=== PATIENT | female | born 1935 | race Caucasian/White ===

== ENCOUNTER 2017-12-07 15:37 | Inpatient (IN) | payer OTHER ==
[~2017-12-07] VITALS: Ht 160 cm; Wt 107.5 kg
--- NOTE | ~2017-12-07 | 2DMMODE ---
[facility] [address] [place] [address] 2 D/M-MODE ECHOCARDIOGRAM Name: EMMETT DIAMOND Room #: 461-P [facility] IN .R.#: [id number] Admission: 12/07/17 Attend Phys: Ricci Chery MD Discharge: Date of : 39 Date of Service: 12/08/17 1017 Report #: [id number] THIS REPORT FOR: //name// APPROVED REPORT Study performed: 12/08/2017 08:22:12 EXAM: Comprehensive 2D, Doppler, and color-flow Echocardiogram Patient Location: Bedside Room #: 461 Status: routine BSA: 2.05 HR: 113 bpm BP: 128/61 mmHg Other Information Study Quality: Technically Difficult/Technically Limited Technically limited study due to body habitus, inability to position patient. Indications Congestive Heart Failure COPD Diabetes Atrial Fibrillation Dyspnea Hypertension/HDD 2D Dimensions RVDd: 29.75 mm LVEF(%): 66.34 (>50%) IVSd: 13.28 (7-11mm) LVOT Diam: 22.55 (18-24mm) LVDd: 41.64 mm PWd: 11.86 (7-11mm) LVDs: 26.55 (25-40mm) Aortic Root: 31.14 mm IVC: 20.00 mm Carreon's LVEF: 66.34 % Volumes Left Atrial Volume (Systole) Single Plane 4CH: 22.71 mL Single Plane 2CH: 48.56 mL LA ESV Index: 19.00 mL/m2 Aortic Valve AoV Peak Francois.: 1.88 m/s AO Peak Gr.: 14.21 mmHg LVOT Max P.34 mmHg [facility] [address] [place] [address] 2 D/M-MODE ECHOCARDIOGRAM Name: EMMETT DIAMOND Room #: 461-[facility].#: [id number] Admission: 12/07/17 Attend Phys: Ricci Chery MD Discharge: Date of : 39 Date of Service: 12/08/17 1017 Report #: [id number] LVOT Max V: 0.91 m/s ZACHARY Vmax: 1.94 cm2 Mitral Valve MV Decel. Time: 127.56 ms MV E Max Francois.: 1.56 m/s Pulmonary Valve PV Peak Francois.: 1.29 m/s PV Peak Gr.: 6.88 mmHg Tricuspid Valve TR Peak Francois.: 2.95 m/s RAP Estimate: 5.00 mmHg TR Peak Gr.: 34.77 mmHg PA Pressure: 40.00 mmHg Left Ventricle The left ventricle is normal size. Mild concentric left ventricular hypertrophy. The left ventricular systolic function is normal. The left ventricular ejection fraction is within the normal range. LVEF is 55-60%. This study is not technically sufficient to allow evaluation of the LV diastolic function due to atrial fibrillation. Right Ventricle The right ventricle is normal size. The right ventricular systolic function is normal. Atria The left atrium size is normal. The right atrium size is normal. Aortic Valve The aortic valve is not well visualized. No aortic regurgitation is present. There is no aortic valvular stenosis. Mitral Valve The mitral valve is normal in structure. Trace to mild mitral regurgitation. No evidence of mitral valve stenosis. Tricuspid Valve The tricuspid valve is normal in structure. Trace to mild tricuspid regurgitation. PAP is estimated at 40 mmHg. Pulmonic Valve Pulmonic valve is not well visualized. [facility] [address] [place] [address] 2 D/M-MODE ECHOCARDIOGRAM Name: EMMETT DIAMOND Room #: 461-P [facility] IN .R.#: [id number] Admission: 12/07/17 Attend Phys: Ricci Chery MD Discharge: Date of : 39 Date of Service: 12/08/17 1017 Report #: [id number] Great Vessels The aortic root is normal in size. IVC is normal in size and collapses >50% with inspiration. Pericardium There is no pericardial effusion. <Conclusion> The left ventricle is normal size. LVEF is 55-60%. This study is not technically sufficient to allow evaluation of the LV diastolic function due to atrial fibrillation. The right ventricle is normal size. The aortic valve is not well visualized. There is no aortic valvular stenosis. Trace to mild mitral regurgitation. Trace to mild tricuspid regurgitation. PAP is estimated at 40 mmHg. The aortic root is normal in size. There is no pericardial effusion. <ELECTRONICALLY SIGNED> By: Jonathan Carrington MD, FACC 12/08/17 1017 1017 1017 Jonathan Carrington MD, FACC /INF
--- NOTE | ~2017-12-07 | EKG ---
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
[~2017-12-07 15:37] MED LIST: ACETAMINOPHEN650 MG RECTAL; ACIDOPHILUS PROB1 MG PO; ALBUTEROL2.5 MG/0.1 INH; AMARYL2 MG PO; ANTIVERT25 MG PO; ARIMIDEX PO; ATIVAN0.5 MG PO; CATHFLO ACT2 MG/VIAL INJECTION; CENTRUM SILVER1 EAC4 PO; COUMADIN7.5 MG PO; CRANBERRY425 MG PO; CYCLOBENZAPRINE5 MG PO; DAKIN'S473 M1; DIFLUCAN200 MG IV; DUONEB 2.5-0.5 M3 ML; DUONEB 2.5-0.5 M3 ML INH; ENOXAPARIN40 MG/0.1 SUBQ; ENOXAPARIN80 MG/0.1 SUBQ; FLONASE 0.05%50 MCG NASAL; GABAPENTIN 100100 MG PO; GLUCAGEN1 MG SUBQ; GLUCOPHAGE500 MG PO; GLUCOSE GEL38 GM; HEPARIN 1,100 UNIT/1 SUBQ; HYDROCODONE-AP1 EAC6 PO; INTRALIPID; IPRAT-ALBUT 0.5-3 ML IH; LASIX 40 MG TAB40 M2 PO; LEVAQUIN 500 M500 M9; LEVEMIR SUBQ; LEVEMIR100 UNIT/1 SUBQ; LEVOTHYROXIN0.075 MG PO; LEVOTHYROXINE 0.1 MG PO; MAGNESIUM OXID400 MG PO; MAGOX 400400 MG PO; MAPAP325 MG PO; MOM; MORPHINE 44 MG/1 ML IV PUSH; MUCINEX TA600 MG/TA2 PO; NORCO 10-325 T1 EACH PO; NOVOLOG100 UNIT/1 SUBQ; NYAMYC15 GM TOP; NYSTATIN CREAM TOP; ONDANSETRON HCL4 M2; ONDANSETRON HCL4 M2 PO; ONDANSETRON4 MG/2 ML IJ; PANTOPRAZOLE SO40 M1; PAXIL10 MG; POTASSIUM20 PO; PROAIR HFA8.5 GM INH; PROTONIX 440 MG/VIA1 IV; PROTONIX40 M1 PO; PULMICORT0.5 MG/22; PULMICORT0.5 MG/22 INH; REGLAN 10 MG TA10 MG IV; REMERON15 MG PO; REQUIP 0.25 M0.25 MG PO; REQUIP0.5 MG PO; ROCEPHIN 11 GM/1001 IVPB; TPN ELECTROLYTE20 M1 IV; TPN ELECTROLYTE20 ML IV; TUMS PO; VANCOMYCIN HCL 11 G2 IVPB; VOLTAREN GEL 1100 G1; ZOLOFT50 MG PO; ZYRTEC10 MG; [UNRECOGNIZED DRUG - OTHER] IM
[2017-12-07 15:38] VITALS: BP 125/60
[2017-12-07 15:54] LABS: ABSOLUTE NEUTROPHILS 5.4 thou/uL (1.4-8.2); BASOPHILS 0.8 % (0.0-2.0); EOSINOPHILS 0.9 % (0.0-3.0); HEMATOCRIT 40.6 % (37.0-47.0); HEMOGLOBIN 13.3 gm/dL (12.0-15.0); LYMPHOCYTES 20.1 % (24.0-44.0); MCH 27.7 pg (26.0-34.0); MCHC 32.7 g/dL (28.0-37.0); MCV 84.8 fL (80.0-100.0); MONOCYTES 7.8 % (1.0-8.0); PLATELET COUNT 155 thou/uL (150-400); POLYS 70.4 % (36.0-66.0); RBC 4.79 mil/uL (4.20-5.00); RDW 18.8 % (10.5-14.5); WBC 7.7 thou/uL (4.0-11.0)
[2017-12-07 16:07] LABS: ANION GAP 8 mmol/L (7-16); BUN 24 mg/dL (7-18); CALCIUM 9.4 mg/dL (8.5-10.1); CHLORIDE 99 mmol/L (98-107); CO2 32 mmol/L (21-32); CREATININE 1.2 mg/dL (0.6-1.0); GLUCOSE 237 mg/dL (74-106); POTASSIUM 4.1 mmol/L (3.5-5.1); SODIUM 139 mmol/L (136-145)
[2017-12-07 16:10] LABS: TROPONIN-I < 0.04 ng/mL (<0.06)
[2017-12-07 20:57] VITALS: BP 158/87
[2017-12-07 21:23] VITALS: BP 162/87
[2017-12-07 23:42] VITALS: BP 176/92
[2017-12-08] MEDS ORDERED: ANASTROZOLE1 MG PO (04:10)
[2017-12-08 04:11] VITALS: BP 128/61
[2017-12-08] MEDS ORDERED: XARELTO20 MG PO ×2 (04:17→04:18)
[2017-12-08 08:00] VITALS: BP 154/76
[2017-12-08 16:00] VITALS: BP 131/59
[2017-12-08 20:06] VITALS: BP 147/80
[2017-12-09 01:09] LABS: GLYCOHEMOGLOBIN (HGB A1C) 9.8 % (4.8-5.6)
[2017-12-09 02:59] VITALS: BP 174/79
[2017-12-09 06:35] LABS: ABSOLUTE NEUTROPHILS 9.1 thou/uL (1.4-8.2); BASOPHILS 0.2 % (0.0-2.0); HEMATOCRIT 40.8 % (37.0-47.0); LYMPHOCYTES 5.7 % (24.0-44.0); MCH 27.1 pg (26.0-34.0); MCHC 31.8 g/dL (28.0-37.0); MCV 85.3 fL (80.0-100.0); MONOCYTES 1.9 % (1.0-8.0); PLATELET COUNT 161 thou/uL (150-400); POLYS 92.2 % (36.0-66.0); RBC 4.78 mil/uL (4.20-5.00); RDW 18.8 % (10.5-14.5); WBC 9.8 thou/uL (4.0-11.0)
[2017-12-09 06:52] LABS: ALBUMIN 3.3 g/dL (3.4-5.0); CALCIUM 8.9 mg/dL (8.5-10.1); CREATININE 1.1 mg/dL (0.6-1.0); MAGNESIUM 2.6 mg/dL (1.8-2.4); TOTAL BILIRUBIN 0.8 mg/dL (<0.1-1.0)
[2017-12-09 08:00] VITALS: BP 127/64
[2017-12-09 15:51] VITALS: BP 130/62
[2017-12-09 20:05] VITALS: BP 131/65
[2017-12-10 03:49] VITALS: BP 140/61
[2017-12-10 05:22] LABS: HEMATOCRIT 38.4 % (37.0-47.0); HEMOGLOBIN 12.1 gm/dL (12.0-15.0); MCH 27.2 pg (26.0-34.0); MCHC 31.5 g/dL (28.0-37.0); MCV 86.5 fL (80.0-100.0); RBC 4.44 mil/uL (4.20-5.00); WBC 7.5 thou/uL (4.0-11.0)
[2017-12-10 05:37] LABS: CALCIUM 8.9 mg/dL (8.5-10.1); CREATININE 1.2 mg/dL (0.6-1.0); POTASSIUM 4.2 mmol/L (3.5-5.1)
[2017-12-10 08:41] VITALS: BP 149/70
[2017-12-10 16:07] VITALS: BP 143/64
[2017-12-10 19:59] VITALS: BP 117/57
[2017-12-11 03:59] VITALS: BP 147/71
[2017-12-11 05:04] LABS: HEMATOCRIT 37.4 % (37.0-47.0); MCH 27.5 pg (26.0-34.0); MCHC 32.2 g/dL (28.0-37.0); MCV 85.6 fL (80.0-100.0); RBC 4.37 mil/uL (4.20-5.00); RDW 18.8 % (10.5-14.5); WBC 6.5 thou/uL (4.0-11.0)
[2017-12-11 05:16] LABS: CALCIUM 8.7 mg/dL (8.5-10.1)
[2017-12-11 05:23] LABS: POTASSIUM 5.3 mmol/L (3.5-5.1)
[2017-12-11 08:08] VITALS: BP 149/80
[2017-12-11 15:30] VITALS: BP 158/87
[2017-12-11 20:11] VITALS: BP 134/67
[2017-12-12 03:41] VITALS: BP 142/71
[2017-12-12 06:13] LABS: ALBUMIN 2.9 g/dL (3.4-5.0); CALCIUM 8.7 mg/dL (8.5-10.1); CREATININE 0.9 mg/dL (0.6-1.0); PHOSPHORUS 2.6 mg/dL (2.5-4.9); POTASSIUM 4.3 mmol/L (3.5-5.1); TOTAL BILIRUBIN 0.6 mg/dL (<0.1-1.0); TOTAL PROTEIN 6.2 g/dL (6.4-8.2)
[2017-12-12 08:20] VITALS: BP 140/73
[2017-12-12] MEDS ORDERED: AUGMENTIN 500-1 EACH PO (15:07)
[2017-12-12] MEDS ORDERED: MEDROL4 M1 PO (15:09)
[2017-12-12 15:16] VITALS: BP 138/72
[2017-12-12 19:06] VITALS: BP 153/87
[2017-12-13 03:33] VITALS: BP 165/77
[2017-12-13 07:27] VITALS: BP 150/62
== END 2017-12-13 14:00 | DRG 177 ==
LOC: ER 15:37 → EROBS 17:55 → 4W 17:55
PROVIDERS: Emergency Medicine; Hospitalist; Nurse Practitioner
DX: J15.6 Pneumonia due to other Gram-negative bacteria (principal); J96.21 Acute and chronic respiratory failure with hypoxia; N17.9 Acute kidney failure, unspecified; K57.80 Diverticulitis of intestine, part unspecified, with perforation and abscess without bleeding; J44.1 Chronic obstructive pulmonary disease with (acute) exacerbation; Z68.41 Body mass index [BMI] 40.0-44.9, adult; F32.9 Major depressive disorder, single episode, unspecified; G25.81 Restless legs syndrome; F41.9 Anxiety disorder, unspecified; G47.09 Other insomnia; M19.90 Unspecified osteoarthritis, unspecified site; E03.9 Hypothyroidism, unspecified; I50.9 Heart failure, unspecified; G20 Parkinson's disease; Z16.30 Resistance to unspecified antimicrobial drugs; E11.65 Type 2 diabetes mellitus with hyperglycemia; E11.42 Type 2 diabetes mellitus with diabetic polyneuropathy; I11.0 Hypertensive heart disease with heart failure; E83.42 Hypomagnesemia; R63.4 Abnormal weight loss; E55.9 Vitamin D deficiency, unspecified; I48.91 Unspecified atrial fibrillation; R06.01 Orthopnea; Z90.13 Acquired absence of bilateral breasts and nipples; Z79.899 Other long term (current) drug therapy; Z98.49 Cataract extraction status, unspecified eye; Z90.49 Acquired absence of other specified parts of digestive tract; Z93.3 Colostomy status; Z79.01 Long term (current) use of anticoagulants
CPT/HCPCS: 10045